=== PATIENT | female | born 1985 ===

== ENCOUNTER 2022-07-10 14:00 | Inpatient (IN) | payer OTHER ==
[~2022-07-10] VITALS: Ht 162.6 cm; Wt 107.5 kg
[2022-07-29] MEDS ORDERED: PRENA1 TRUE CO1 EACH PO (18:33)
== END 2022-07-31 18:26 | disposition home or self-care (01) | DRG 788 ==
LOC: OB/GYN 07-29 17:35 → LDR 07-29 17:35 → O/R 07-29 21:53 → OB/GYN 07-29 23:18
PROVIDERS: Obstetrics & Gynecology; ADMIT Obstetrics & Gynecology Maternal & Fetal Medicine; ATTEND Obstetrics & Gynecology Maternal & Fetal Medicine
PROC: 4A1HXCZ Monitoring of Products of Conception, Cardiac Rate, External Approach (ICD-10-PCS; 2022-07-29)
PROC: 10D00Z1 Extraction of Products of Conception, Low, Open Approach (ICD-10-PCS; principal; 2022-07-29 21:00)
DX: O62.1 Secondary uterine inertia (principal); Z3A.38 38 weeks gestation of pregnancy; Z37.0 Single live birth; Z20.822 Contact with and (suspected) exposure to COVID-19

== ENCOUNTER 2022-07-21 11:41 | Outpatient (CLI) | payer OTHER | END 2022-07-21 12:42 | disposition home or self-care (01) | LOC: NST 11:41 | PROVIDERS: ATTEND Obstetrics & Gynecology Maternal & Fetal Medicine | DX: Z34.83 Encounter for supervision of other normal pregnancy, third trimester (principal) ==